=== PATIENT | male | born 1970 | race Caucasian/White ===

== ENCOUNTER 2018-09-25 10:35 | Observation (INO) | payer OTHER, SELFPAY ==
[2018-09-25] VITALS (12 sets, daily range): BP systolic 113–151; BP diastolic 64–88; PULSE 55–87; RESP 12–18; TEMP 36.4–37; O2SAT 95–100; BMI 22.7
--- NOTE | 2018-09-25 11:03 | ED.ABDPAIN ---
HPI - Abdominal Pain General Chief Complaint: Abdominal Pain Stated Complaint: Food is stuck in his esophacus Time Seen by Provider: 09/25/18 11:02 Source: patient Mode of arrival: ambulatory Limitations: no limitations History of Present Illness HPI narrative: 40-year-old male comes in with complaint of a sensation of food stuck in his esophagus. He states sort of upper epigastric lower chest region. Patient states he has had this before. He states it started 2 days ago while he was eating chicken. He states that he was not eating carefully and taking small bites and doing well. He states that he has tried to get it to pass on his own. He thinks maybe a little bit water got has gotten past but he typically spits it or vomits it back up. He has been vomiting back up any food he tries to eat. He states that he has been able to take his home medication but he thinks it does also pretty quickly he takes Lamictal. Patient states that he does not have any chest pain or shortness of breath. He has not had a bowel movement in 2 days but states that he has been passing gas. He has been urinating less but states he has not been drinking much water. He has had scope with GI 2 years ago with dilation of his esophagus. He states that was done at Saturday. He was told he would likely need another 1 in the future. Patient denies any other medical issues besides his seizure disorder. He denies any other surgeries. Patient states no other medication allergies. Patient lives on [facility]. Related Data Previous Rx's Medication Instructions Recorded lamotrigine [Lamictal] 400 mg PO BID #120 tab 03/06/16 albuterol sulfate [Ventolin HFA] 2 puff INH BID PRN #1 gm 07/09/16 Allergies Allergy/AdvReac Type Severity Reaction Status Date / Time No Known Drug Allergies Allergy Verified 09/25/18 10:42 Review of Systems Review of Systems ROS Unobtainable: All systems reviewed & are unremarkable except as noted in HPI and below Constitutional Denies chills, Denies fever(s), Denies lethargy and Denies weakness Cardiovascular Denies chest pain, Denies syncope, Denies edema, Denies palpitations, Denies dyspnea and Denies dyspnea on exertion Respiratory Denies change in phlegm color, Denies chest congestion, Denies cough, Denies dyspnea and Denies dyspnea on exertion Gastrointestinal Gastrointestinal: Reports abdominal pain (discomfort in chest), Denies change in bowel habits, Denies diarrhea, Reports nausea and Reports vomiting Genitourinary Denies dysuria, Denies urinary frequency, Denies urinary incontinence and Denies urinary urgency Musculoskeletal Denies back pain Neurologic Denies syncope and Denies weakness Endocrine Denies palpitations [facility] Medical History Esophageal dilatation (Chronic) Seizure disorder (Chronic) Surgical History S/P dilatation of esophageal stricture (Chronic) Family History (Updated 09/06/16 @ 00:00 by Conversion Provider) Grandfather Alzheimer's disease Grandmother Stroke Grandmother Dementia Social History Smoking Status: Never smoker Family History Grandfather Alzheimer's disease Grandmother Stroke Grandmother Dementia Social History household members: none Smoking Status: Never smoker Exam Initial Vital Signs Initial Vital Signs: Vital Signs Temperature 98.5 F 09/25/18 10:36 Pulse Rate 66 09/25/18 10:36 Respiratory Rate 18 09/25/18 10:36 Blood Pressure 151/87 H 09/25/18 10:36 Pulse Oximetry 100 09/25/18 10:36 GENERAL: Alert and oriented x three, well-nourished, well-appearing male in mild distress. HEENT: Head normocephalic, atraumatic, EOMI, pupils reactive, face symmetric, moist mucous membranes NECK: Supple, full range of motion CARDIOVASCULAR: Regular rate and rhythm without murmurs, rubs or gallops. RESPIRATORY: Breath sounds equal bilaterally, no wheezes rales or rhonchi. ABDOMEN: Soft, nontender to palpation. Normoactive bowel sounds all 4 quadrants. No guarding or rebound, rigidity, no mass : No CVA tenderness EXTREMITIES: Normal range of motion, no clubbing or edema. Neurovascularly intact NEUROLOGICAL: Cranial nerves II through XII grossly intact. Moving all extremities SKIN: Warm, dry, no petechiae, no rashes or lesions. Course Orders Ordered: ED Orders 09/25/18 11:25 Complete Blood Count AUTO DIFF Stat Comprehensive Metabolic Panel Stat Lamotrigine Lamictal Stat Lipase Stat Discontinued Medications Benzocaine/Butamben/Tetracaine HCl (Cetacaine Rough And Ready) 1 spray TOP NOW ONE Stop: 09/25/18 14:21 Last Admin: 09/25/18 14:10 Dose: 1 spray Fentanyl (Sublimaze) 250 mcg IV INTRA-OP ONE Stop: 09/25/18 14:21 Last Admin: 09/25/18 14:20 Dose: 150 mcg Glucagon (Glucagen) 1 mg IV NOW ONE Stop: 09/25/18 11:17 Last Admin: 09/25/18 11:30 Dose: 1 mg Sodium Chloride (Normal Saline 0.9%) 1,000 mls @ 1,000 mls/hr IV BOLUS ONE Stop: 09/25/18 12:15 Last Infusion: 09/25/18 12:39 Dose: 0 mls/hr Admin: 09/25/18 11:29 Dose: 1,000 mls/hr Lidocaine HCl (Lidocaine Hcl) 20 ml TOP NOW ONE Stop: 09/25/18 14:21 Last Admin: 09/25/18 14:10 Dose: 20 ml Midazolam HCl (Versed) 5 mg IV INTRA-OP ONE Stop: 09/25/18 14:21 Last Admin: 09/25/18 14:22 Dose: 4 mg Vital Signs - 8 hr 09/25/18 10:36 09/25/18 11:06 09/25/18 11:37 Temperature 98.5 F Pulse Rate 66 87 72 Respiratory Rate 18 16 18 Blood Pressure 151/87 H Blood Pressure [Left Arm] 121/64 127/79 Pulse Oximetry 100 99 100 09/25/18 12:00 09/25/18 12:30 09/25/18 13:34 Temperature 98.6 F Pulse Rate 61 62 57 L Respiratory Rate 18 18 16 Blood Pressure 137/83 Blood Pressure [Left Arm] 123/78 134/81 Pulse Oximetry 100 100 97 09/25/18 14:27 09/25/18 14:32 09/25/18 14:37 Temperature 98.2 F 97.9 F Pulse Rate 72 76 83 Respiratory Rate 16 12 18 Blood Pressure 113/72 122/77 129/72 Blood Pressure [Left Arm] Pulse Oximetry 95 97 97 09/25/18 14:40 09/25/18 14:54 09/25/18 15:15 Temperature 97.6 F Pulse Rate 68 55 L 63 Respiratory Rate 14 16 16 Blood Pressure 126/81 142/88 H 140/86 Blood Pressure [Left Arm] Pulse Oximetry 98 99 100 MDM - Abdominal Pain Lab Data Attestation: I reviewed the patient's lab results. Result diagrams: 09/25/18 11:25 09/25/18 11:25 Lab Results 09/25/18 09/25/18 Range/Units 11:25 11:25 WBC 5.7 (4.5-11.0) X10^3/uL RBC 4.84 (4.5-5.9) X10^6/uL Hgb 16.1 (13.5-17.5) g/dL Hct 47.5 (41-53) % MCV 98.1 (80-100) fL MCH 33.2 (26-34) PG MCHC 33.8 (30-36) % RDW 12.6 (11.6-14.8) % Plt Count 276 (150-400) X10^3/uL Neut % (Auto) 69.9 (50-75) % Lymph % (Auto) 20.8 L (25-40) % [place] % (Auto) 6.4 (3-14) % Eos % (Auto) 2.2 (2-4) % Baso % (Auto) 0.7 (0-2) % Neut # (Auto) 4000 (5677-4410) /uL Lymph # (Auto) 1200 (4141-0232) /uL [place] # (Auto) 400 (0-900) /uL Eos # (Auto) 100 (0-450) /uL Baso # (Auto) 0 (0-100) /uL Sodium 143 (137-145) mmol/L Potassium 4.6 (3.4-5.1) mmol/L Chloride 102 (98-107) mmol/L Carbon Dioxide 31 (22-32) mmol/L BUN 22 H (9-20) mg/dL Creatinine 1.20 (0.66-1.25) mg/dL Estimated GFR > 60.0 (>60) mL/min BUN/Creatinine Ratio 18.3 (6-22) Glucose 96 (70-100) mg/dL Calcium 9.9 (8.4-10.2) mg/dL Total Bilirubin 1.1 (0.2-1.3) mg/dL AST 33 (17-59) IU/L ALT 31 (21-72) IU/L Alkaline Phosphatase 119 (38-126) U/L Total Protein 8.3 H (6.3-8.2) g/dL Albumin 5.0 (3.5-5.0) g/dL Globulin 3.3 (1.7-4.1) g/dL Albumin/Globulin Ratio 1.5 (1.0-2.8) Lipase 163 (23-300) U/L MDM Narrative Medical decision making narrative: Tried glucagon followed by a clear carbonated beverage without any improvement. Spoke with Dr. Scott he will come and see the patient get a consent and plans for EGD today. We did discuss patient does have a seizure disorder, lamotrigine level is pending. He did request EKG for the patient. Patient thought he may have cleared food bolus he states it feels a little bit better. He tried chugging some water, spewed everywhere. Dr. Gonzales was in department and took patient to OR for EGD> Discharge Plan Departure Patient Disposition: Admitted as Observation Clinical Impression: Food impaction of esophagus Discharge Date/Time: 09/25/18 13:05 Interventions: ED Discharge Assessment Last Done: 09/25/18 13:04 Admit Date/Time: 09/25/18 12:38 Admit Provider: Jordin Gonzales
[2018-09-25] MEDS: SODIUM CHLORIDE 0.9% 1,000 ML 1000 ML IV (11:29)
[2018-09-25] MEDS: GLUCAGON,HUMAN RECOMBINANT 1 MG/ML VIAL IV (11:30)
[2018-09-25 11:40] LABS: Add Manual Diff / Slide Review NO; Basophils Absolute Auto 0 /uL (0-100); Basophils Percent Auto 0.7 % (0-2); Eosinophils Absolute Auto 100 /uL (0-450); Eosinophils Percent Auto 2.2 % (2-4); Hematocrit 47.5 % (41-53); Hemoglobin 16.1 g/dL (13.5-17.5); Lymphocytes Absolute Auto 1200 /uL (1100-4500); Lymphocytes Percent Auto 20.8 % (25-40); Mean Corpuscular HGB Conc 33.8 % (30-36); Mean Corpuscular Hemoglobin 33.2 PG (26-34); Mean Corpuscular Volume 98.1 fL (80-100); Monocytes Absolute Auto 400 /uL (0-900); Monocytes Percent Auto 6.4 % (3-14); Neutrophils Absolute Auto 4000 /uL (1500-7000); Neutrophils Percent Auto 69.9 % (50-75); Platelet Count 276 X10^3/uL (150-400); Red Blood Cell Count 4.84 X10^6/uL (4.5-5.9); Red Cell Distribution Width 12.6 % (11.6-14.8); White Blood Cell Count 5.7 X10^3/uL (4.5-11.0)
[2018-09-25 11:52] LABS: Alanine Aminotransferase 31 IU/L (21-72); Albumin Globulin Ratio 1.5 (1.0-2.8); Alkaline Phosphatase 119 U/L (38-126); Aspartate Aminotransferase 33 IU/L (17-59); BUN Creatinine Ratio 18.3 (6-22); Bilirubin Total 1.1 mg/dL (0.2-1.3); Blood Urea Nitrogen 22 mg/dL (9-20); Calcium 9.9 mg/dL (8.4-10.2); Carbon Dioxide 31 mmol/L (22-32); Chloride 102 mmol/L (98-107); Estimated Glomerular Filt Rate > 60.0 mL/min (>60); Globulin 3.3 g/dL (1.7-4.1); Glucose 96 mg/dL (70-100); HEMOLYSIS < 15 (0-50); Lipase 163 U/L (23-300); Potassium 4.6 mmol/L (3.4-5.1); Sodium 143 mmol/L (137-145); Total Protein 8.3 g/dL (6.3-8.2)
--- NOTE | 2018-09-25 13:08 | PM.HP.1 ---
History of Present Illness Date Patient Seen: 09/25/18 Time Patient Seen: 13:08 Chief complaint: Food is stuck in his esophacus Narrative: 48-year-old white male with a 2 year history of esophageal stricture and removal of a food bolus 2 years ago. He thinks he had his esophagus dilated 2 years ago also. Is a 2 day history of food being lodged in the esophagus. He is unable to swallow water or saliva. Patient History Medical History Esophageal dilatation (Chronic) Seizure disorder (Chronic) Surgical History S/P dilatation of esophageal stricture (Chronic) Family History (Updated 09/06/16 @ 00:00 by Conversion Provider) Grandfather Alzheimer's disease Grandmother Stroke Grandmother Dementia Social History Smoking Status: Never smoker Family & Social History Family History Grandfather Alzheimer's disease Grandmother Stroke Grandmother Dementia Safety & Behavioral: Feels Safe in Current Yes Environment Been Physically Hurt or No Threatened By a Person Tobacco & Substance use: Smoking Status Never smoker alcohol intake frequency 3 or more drinks per day Substance Use Type does not use Meds Home Medications Medication Instructions Recorded Confirmed Type lamotrigine [Lamictal] 400 mg PO BID #120 tab 03/06/16 09/25/18 Rx albuterol sulfate [Ventolin HFA] 2 puff INH BID PRN #1 gm 07/09/16 09/25/18 Rx Allergies Allergy/AdvReac Type Severity Reaction Status Date / Time No Known Drug Allergies Allergy Verified 09/25/18 10:42 Exam Vital Signs (past 8 hours): - 09/25/18 10:36 09/25/18 11:06 09/25/18 11:37 Temperature 98.5 F Pulse Rate 66 87 72 Respiratory Rate 18 16 18 Blood Pressure 151/87 H Blood Pressure [Left Arm] 121/64 127/79 Pulse Oximetry 100 99 100 Oxygen Delivery Method Room Air Narrative Exam Narrative: Patient is alert oriented unable to swallow saliva. Lungs are clear with no rales or wheezes Heart regular rhythm no murmur no gallop Abdomen soft no organomegaly no tenderness Cervical exam shows no adenopathy or masses Objective Labs Result Diagrams: 09/25/18 11:25 09/25/18 11:25 Labs: Laboratory Results - last 24 hr 09/25/18 09/25/18 11:25 11:25 WBC 5.7 RBC 4.84 Hgb 16.1 Hct 47.5 MCV 98.1 MCH 33.2 MCHC 33.8 RDW 12.6 Plt Count 276 Neut % (Auto) 69.9 Lymph % (Auto) 20.8 L [place] % (Auto) 6.4 Eos % (Auto) 2.2 Baso % (Auto) 0.7 Neut # (Auto) 4000 Lymph # (Auto) 1200 [place] # (Auto) 400 Eos # (Auto) 100 Baso # (Auto) 0 Sodium 143 Potassium 4.6 Chloride 102 Carbon Dioxide 31 BUN 22 H Creatinine 1.20 Estimated GFR > 60.0 BUN/Creatinine Ratio 18.3 Glucose 96 Calcium 9.9 Total Bilirubin 1.1 AST 33 ALT 31 Alkaline Phosphatase 119 Total Protein 8.3 H Albumin 5.0 Globulin 3.3 Albumin/Globulin Ratio 1.5 Lipase 163 Assessment & Plan Assessment & Plan narrative: Patient's for current food bolus lodged in the esophagus likely secondary to a stricture. He has had this before. He understands the nature of the problem and that I will do an esophagoscopy extraction of the food bolus. This boluses been present for about 2 days. Therefore I explained to the patient may not be safe to dilate the esophagus as it is likely to be inflamed. This will be determined at endoscopy. Patient understands and agrees. Has no further questions
[2018-09-25] MEDS: LIDOCAINE 4% SOLN 50 ML 20 ML TOP (14:10)
[2018-09-25] MEDS: TETRACAINE/BENZOCAINE/BUTAMBEN (CETACAINE) BOTTLE 1 SPRAY TOP (14:10)
--- NOTE | 2018-09-25 14:19 | PM.OP.ENDO ---
Operative Date/Time/Diagnoses Date of procedure: 09/25/18 Time of procedure: 14:19 Pre-op diagnosis: Esophageal food bolus with possible stricture Post-op diagnosis: same Procedure & Clinicians Study performed: Esophagogastroduodenoscopy forward advancement of esophageal food bolus into the stomach Same procedure as scheduled: Yes Indications: Food bolus lodged in the distal esophagus Surgeon: Jordin Gonzales Procedure Notes SCOAP/Timeout: Was done Procedure in detail: The patient was properly identified during surgical pause given topical pharyngeal Cetacaine spray. Total of 4 mg of Versed and 150 micro g of fentanyl throughout the procedure. The flexible fiberoptic gastroscope was inserted transorally from the hypopharynx into the midesophagus. A food bolus of chicken fibrous tissue was lodged in the distal esophagus. With irrigation and gentle forward pressure I was able to advance the food bolus into the stomach. Some bleeding occurred from the mucosa. This was minimal. I advanced the scope into the stomach and upper duodenum. Retroflexed thing the scope on the gastric side revealed no Gracie-Garcia tear or any other gastroesophageal injury. Patient has a moderate stricture in the distal esophagus which appears benign. The adult gastroscope easily traversed this stricture. Because the area was already somewhat hemorrhagic I elected not to dilate the stricture. I did not want to create further bleeding. The procedure was well tolerated. Scope withdrawal time: 8 Sedation minutes: 8 Findings: stricture Specimen(s): none sent Impression: Mild benign-appearing esophageal stricture. Food bolus was lodged there and advanced into the stomach. Plan for aftercare: To your food well. Take an [id number] variety of a proton pump inhibitor for 6 weeks. This could be [id number] variety of Prilosec or Nexium. Follow up: as needed Disposition: PACU
[2018-09-25] MEDS: fentaNYL 250 MCG/5 ML INJ IV (14:20)
[2018-09-25] MEDS: MIDAZOLAM 5 MG/5 ML VIAL IV (14:22)
--- NOTE | 2018-09-25 14:25 | P.OP.ENDO_ITS ---
Operative Date/Time/Diagnoses Date of procedure: 09/25/18 Time of procedure: 14:19 Pre-op diagnosis: Esophageal food bolus with possible stricture Post-op diagnosis: same Procedure & Clinicians Study performed: Esophagogastroduodenoscopy forward advancement of esophageal food bolus into the stomach Same procedure as scheduled: Yes Indications: Food bolus lodged in the distal esophagus Surgeon: Jordin Gonzales Procedure Notes SCOAP/Timeout: Was done Procedure in detail: The patient was properly identified during surgical pause given topical pharyngeal Cetacaine spray. Total of 4 mg of Versed and 150 micro g of fentanyl throughout the procedure. The flexible fiberoptic gastroscope was inserted transorally from the hypopharynx into the midesophagus. A food bolus of chicken fibrous tissue was lodged in the distal esophagus. With irrigation and gentle forward pressure I was able to advance the food bolus into the stomach. Some bleeding occurred from the mucosa. This was minimal. I advanced the scope into the stomach and upper duodenum. Retroflexed thing the scope on the gastric side revealed no Gracie-Garcia tear or any other gastroesophageal injury. Patient has a moderate stricture in the distal esophagus which appears benign. The adult gastroscope easily traversed this stricture. Because the area was already somewhat hemorrhagic I elected not to dilate the stricture. I did not want to create further bleeding. The procedure was well tolerated. Scope withdrawal time: 8 Sedation minutes: 8 Findings: stricture Specimen(s): none sent Impression: Mild benign-appearing esophageal stricture. Food bolus was lodged there and advanced into the stomach. Plan for aftercare: To your food well. Take an [id number]-[id number] variety of a proton pump inhibitor for 6 weeks. This could be imbo-jwx-hzoslfx variety of Prilosec or Nexium. Follow up: as needed Disposition: PACU
--- NOTE | 2018-09-25 14:50 | SUR.PHASEI ---
stable pacu stay, dr dixon spoke with pt. to opd.
--- NOTE | 2018-09-25 15:28 | SUR.PHASEII ---
pt fully recovered awaiting ride which will be 30 minutes wait. Pt dressed and sitting on stretcher.
--- NOTE | 2018-09-25 16:35 | SUR.PHASEII ---
Pt got in appsplit and was d/nuris to the [facility].
[2018-09-28 09:12] LABS: Lamotrigine Lamictal 15.9 mcg/mL (4.0-18.0)
== END 2018-09-25 16:30 | disposition home or self-care (01) ==
LOC: ED 12:35 → AC 12:40
PROVIDERS: Admitting Provider Surgery; Emergency Provider Emergency Medicine; Family Provider Family Medicine; PCP Family Medicine; Visit Provider Surgery
PROC: 0DJ08ZZ Inspection of Upper Intestinal Tract, Via Natural or Artificial Opening Endoscopic (ICD-10-PCS; CPT 43235; principal; 2018-09-25 14:00)
DX: T18.128A Food in esophagus causing other injury, initial encounter (principal); R10.13 Epigastric pain; G40.909 Epilepsy, unspecified, not intractable, without status epilepticus
CPT/HCPCS: 43247; 36591; 80053; 80175; 83690; 85025; 96361; 96374; 99283; 99284; G0378; J1610; J2250; J3010

== ENCOUNTER → 2020-10-19 10:36 | Outpatient (CLI) | payer OTHER, SELFPAY ==
[2020-10-19 20:43] LABS: COVID19 - ORCAS (NP or Nasal) Negative (Negative)
== END ==
PROVIDERS: Family Provider Family Medicine; PCP Family Medicine; Visit Provider Physician Assistant Medical
DX: Z20.822 Contact with and (suspected) exposure to COVID-19 (principal)
CPT/HCPCS: U0003

== ENCOUNTER → 2020-12-01 12:35 | Outpatient (CLI) | payer OTHER, SELFPAY | PROVIDERS: Family Provider Family Medicine; PCP Family Medicine; Visit Provider Family Medicine | DX: G40.909 Epilepsy, unspecified, not intractable, without status epilepticus (principal) | CPT/HCPCS: 80175 ==

== ENCOUNTER → 2021-03-14 08:12 | Outpatient (CLI) | payer OTHER, SELFPAY ==
[2021-03-14 20:15] LABS: COVID19 - ORCAS (NP or Nasal) Negative (Negative)
== END ==
PROVIDERS: Family Provider Family Medicine; PCP Family Medicine; Visit Provider Physician Assistant
DX: Z20.822 Contact with and (suspected) exposure to COVID-19 (principal)
CPT/HCPCS: U0003

== ENCOUNTER 2021-03-16 11:46 | Day surgery (SDC) | payer OTHER, SELFPAY ==
[2021-03-16] VITALS (8 sets, daily range): BP systolic 113–140; BP diastolic 80–92; PULSE 66–75; RESP 14–70; TEMP 36.4–36.7; O2SAT 98–100; BMI 23.6
--- NOTE | 2021-03-16 | PATH_ITS ---
[facility] Accession Number: [id number] . 01 Material submitted: . colon - TRANSVERSE COLON . 02 Diagnosis: Transverse Colon: Tubular adenoma. MRV 03/20/2021 1517 Local . 02 Electronically signed: . Rosemary Ayala MD, Pathologist NPI- [id number] . 01 Gross description: . TRANSVERSE COLON: Received in formalin is 1 fragment(s) of ball, soft tissue measuring 0.6 x 0.2 x 0.2 cm submitted entirely in 1 cassette(s) /NOAH 03/17/2021 1948 Local . 02 Pathologist provided ICD-10: K63.5 . 02 CPT . 559613 Performed at: [address] [facility] Cytology [address] [place] [id number] MD Juan Carlos Barros MD Phone: [phone] Performed at: 02 [facility] [address] [place], [place] [id number] MD Tiffani Stiles MD Phone: [phone]
[2021-03-16] MEDS: LACTATED RINGERS 1,000 ML 200 ML IV (12:12)
--- NOTE | 2021-03-16 13:14 | PM.HP.1 ---
History of Present Illness History of Present Illness Date Patient Seen: 03/16/21 Time Patient Seen: 13:15 Chief complaint: SCREENING COLONOSCOPY Narrative: The patient presents for colorectal sreening. They have never had any previous examination for such. No personal or family history of colon cancer. On further history denies any recent gastrointestinal symptoms. No nausea, vomiting, abdominal pain, loss of appetite, unexplained weight loss, change in bowel habits, diarrhea, constipation, melena, hematochezia, or bright red blood per rectum. Patient History Medical History Asthma Encounter for therapeutic drug monitoring Esophageal dilatation Generalized abdominal pain History of esophageal stricture Nasal congestion Screening for diabetes mellitus Screening for lipid disorders Seizure disorder (~1995) Surgical History S/P dilatation of esophageal stricture Family & Social History Family History Grandfather Alzheimer's disease Grandmother Stroke Grandmother Dementia Social History: household members none Tobacco & Substance use: Smoking Status Never smoker alcohol intake current alcohol intake frequency 3 or more drinks per day Substance Use Type does not use Meds Home Medications and Allergies Home Medications Medication Instructions Recorded Confirmed Type albuterol sulfate 90 mcg/actuation 2 puff INHALATION BID PRN #1 gm 11/11/20 03/16/21 Rx aerosol inhaler (Ventolin HFA) triamcinolone acetonide 0.5 % See Rx Instructions .ROUTE 12/05/20 03/16/21 Rx topical ointment .COMPLEX #15 gram lamotrigine 200 mg tablet 400 mg PO BID #360 tab NS 02/20/21 03/16/21 Rx Allergies Allergy/AdvReac Type Severity Reaction Status Date / Time No Known Drug Allergies Allergy Verified 03/16/21 12:08 Exam Vital Signs (past 8 hours): - 03/16/21 12:13 Temperature 98.1 F Pulse Rate 75 Respiratory Rate 18 Blood Pressure 130/84 Pulse Oximetry 99 Oxygen Delivery Method Room Air Narrative Exam Narrative: GENERAL: Adult male in no apparent distress HEENT: No scleral icterus CV: Regular rate, no peripheral edema LUNGS: No increased work of breathing. Patient speaks in full sentences without oxygen support. ABDOMEN: Soft, non-tender, non-distended NEURO: Nonfocal, normal strength throughout SKIN: Warm and dry Assessment & Plan Assessment and plan (1) Screening for colon cancer: Status: Acute Assessment & Plan narrative: The patient requires colorectal screening and colonoscopy is recommended. Technical details were discussed. Risks, benefits, alternatives explained. Risks including but not limited to myocardial infarction, aspiration, bleeding, pain, missed lesion, incomplete examination, need for further radiographic studies, colonic perforation, and need for major abdominal surgery were discussed. All questions were answered to their satisfaction, and they are in agreement with this plan. Time Spent With Patient Critical Care time: I spent a total of [] minutes of critical care time on this patient's care today; this time is exclusive of procedural time.
[2021-03-16] MEDS: fentaNYL 250 MCG/5 ML INJ IV (13:23)
[2021-03-16] MEDS: MIDAZOLAM 5 MG/5 ML VIAL IV (13:23)
--- NOTE | 2021-03-16 13:42 | P.OP.COLON_ITS ---
Operative Date/Time/Diagnoses Date of procedure: 03/16/21 Time of procedure: 13:42 Pre-op diagnosis: Screening Post-op diagnosis: same Procedure & Clinicians Study performed: Colonoscopy Same procedure as scheduled: Yes Indications: Screening Surgeon: Alber Gandara Procedure Notes Procedure in detail: Medications: Conscious sedation using 8 mg IV midazolam and 100 mcg IV of fentanyl The history and physical was performed/updated and the patient is ASA class is 2. The procedure was discussed in detail with the patient. Potential risks complications including infection, bleeding, missed diagnosis, perforation, need for surgery, and were explained. Their questions were answered and informed consent was obtained. Patient was brought to the procedure room and placed standard monitoring equipment. The patient's vital signs were monitored continuously throughout the entire procedure. Prior to starting time-out was performed. The patient was placed in the left lateral recumbent position. Procedural sedation was adminis tered. Examination began with a thorough inspection of the perianal area there was no evidence of fissures, fistulae, external hemorrhoids or cutaneous malignancy. The colonoscopy scope was then placed into the anal canal and was advanced to the cecum, which was identified by the ileocecal valve, the appendiceal orifice and the confluence of the taenia. The scope was then slowly withdrawn examining colon thoroughly in all directions, irrigating it of any residual stool. FINDINGS 1. Transverse colon-5 mm polyp removed with biopsy forceps 2. Grade 2 internal hemorrhoids The patient tolerated the procedure well. They will be discharged once criteria are met. The prep was of fair quality. The withdrawl time was 6 minutes. The sedation time was 20 minutes. Specimen(s): other (Transverse colon) Complications: none Impression: Colonic polyp Post-procedure Recommendations: Colonoscopy in 5 years Disposition: same day surgery
--- NOTE | 2021-03-16 15:03 | SUR.PHASEII ---
03/16/21-1409 Dr Gandara aware pt being discharged by taxi to [facility] as walk on and then being picked up on [facility] when Docked. Pt declined to give out phone number/name of ride preop. Per Dr Gandara-okay to proceed with transfer to home. Patient aware no driving for 24 hrs post procedure preop and again stressed postop. patient states understanding.
--- NOTE | 2021-03-16 15:06 | SUR.PHASEII ---
03/16/21- 1430-Pt wide awake and alert. pt dressed & ready for discharge. iv out. met criteria for discharge. He has postop paperwork/home instructions/md phone number, and all belongings. [facility] Phelan called for pickup. escorted by wheel chair to await taxi at ER admission area. Sat w/ pt while awaiting taxi. Refused further po fluids,snack for the ride home. 1450-Boyd phelan arrived. escorted ambulatory to taxi. patient has all belongings/paper work.
== END 2021-03-16 14:50 | disposition home or self-care (01) ==
LOC: ENDO 11:49
PROVIDERS: Family Provider Family Medicine; PCP Family Medicine; Referring Provider Surgery; Visit Provider Surgery
PROC: 0DJD8ZZ Inspection of Lower Intestinal Tract, Via Natural or Artificial Opening Endoscopic (ICD-10-PCS; CPT 45378; principal; 2021-03-16 13:00)
DX: Z12.11 Encounter for screening for malignant neoplasm of colon (principal); J45.909 Unspecified asthma, uncomplicated; G40.909 Epilepsy, unspecified, not intractable, without status epilepticus; K64.1 Second degree hemorrhoids; D12.3 Benign neoplasm of transverse colon
CPT/HCPCS: 45380; 99152; J2250; J3010

== ENCOUNTER → 2021-07-19 08:06 | Outpatient (CLI) | payer OTHER, SELFPAY ==
[2021-07-19 18:35] LABS: Add Manual Diff / Slide Review NO; Basophils Absolute Auto 0 /uL (0-100); Basophils Percent Auto 0.8 % (0-2); Eosinophils Absolute Auto 600 /uL (0-450); Eosinophils Percent Auto 11.3 % (2-4); Hematocrit 42.8 % (41-53); Hemoglobin 15.2 g/dL (13.5-17.5); Lymphocytes Absolute Auto 1600 /uL (1100-4500); Lymphocytes Percent Auto 30.3 % (25-40); Mean Corpuscular HGB Conc 35.4 % (30-36); Mean Corpuscular Hemoglobin 34.3 PG (26-34); Mean Corpuscular Volume 96.7 fL (80-100); Monocytes Absolute Auto 400 /uL (0-900); Neutrophils Absolute Auto 2600 /uL (1500-7000); Neutrophils Percent Auto 49.6 % (50-75); Platelet Count 227 X10^3/uL (150-400); Red Blood Cell Count 4.43 X10^6/uL (4.5-5.9); Red Cell Distribution Width 12.5 % (11.6-14.8); White Blood Cell Count 5.2 X10^3/uL (4.5-11.0)
[2021-07-19 18:51] LABS: Alanine Aminotransferase 32 IU/L (<50); Albumin 4.5 g/dL (3.5-5.0); Albumin Globulin Ratio 1.9 (1.0-2.8); Alkaline Phosphatase 107 U/L (38-126); Aspartate Aminotransferase 36 IU/L (17-59); BUN Creatinine Ratio 13.9 (6-22); Bilirubin Total 0.5 mg/dL (0.2-1.3); Blood Urea Nitrogen 16 mg/dL (9-20); Calcium 9.3 mg/dL (8.4-10.2); Carbon Dioxide 32 mmol/L (22-32); Chloride 102 mmol/L (98-107); Cholesterol 247 mg/dL (140-199); Estimated Glomerular Filt Rate > 60 mL/min (>60); Globulin 2.4 g/dL (1.7-4.1); Glucose 100 mg/dL (70-100); HEMOLYSIS < 15 (0-50); Potassium 4.5 mmol/L (3.4-5.1); Sodium 139 mmol/L (137-145); Total Protein 6.9 g/dL (6.3-8.2); Triglycerides 64 mg/dL (35-150)
[2021-07-19 19:15] LABS: HDL Cholesterol 117 mg/dL (40-60); LDL Cholesterol Calculated 117 mg/dL (<100)
== END ==
PROVIDERS: Family Provider Family Medicine; PCP Physician Assistant; Visit Provider Physician Assistant
DX: G40.909 Epilepsy, unspecified, not intractable, without status epilepticus (principal); J45.40 Moderate persistent asthma, uncomplicated; J45.909 Unspecified asthma, uncomplicated; Z12.5 Encounter for screening for malignant neoplasm of prostate; Z13.220 Encounter for screening for lipoid disorders
CPT/HCPCS: 80053; 80061; 84153; 85025

== ENCOUNTER → 2023-02-06 11:42 | Outpatient (CLI) | payer OTHER, SELFPAY ==
[2023-02-06 20:17] LABS: Add Manual Diff / Slide Review NO; Basophils Absolute Auto 0 /uL (0-100); Basophils Percent Auto 0.6 % (0-2); Eosinophils Absolute Auto 400 /uL (0-450); Eosinophils Percent Auto 7.1 % (2-4); Hematocrit 42.7 % (41-53); Hemoglobin 14.6 g/dL (13.5-17.5); Lymphocytes Absolute Auto 1200 /uL (1100-4500); Lymphocytes Percent Auto 22.6 % (25-40); Mean Corpuscular HGB Conc 34.2 % (30-36); Mean Corpuscular Hemoglobin 33.7 PG (26-34); Mean Corpuscular Volume 98.4 fL (80-100); Monocytes Absolute Auto 500 /uL (0-900); Monocytes Percent Auto 9.8 % (3-14); Neutrophils Absolute Auto 3300 /uL (1500-7000); Neutrophils Percent Auto 59.9 % (50-75); Platelet Count 220 X10^3/uL (150-400); Red Blood Cell Count 4.33 X10^6/uL (4.5-5.9); Red Cell Distribution Width 12.6 % (11.6-14.8); White Blood Cell Count 5.5 X10^3/uL (4.5-11.0)
[2023-02-06 20:26] LABS: Alanine Aminotransferase 41 IU/L (<50); Albumin 4.4 g/dL (3.5-5.0); Albumin Globulin Ratio 1.6 (1.0-2.8); Alkaline Phosphatase 118 U/L (38-126); Aspartate Aminotransferase 44 IU/L (17-59); BUN Creatinine Ratio 15.9 (6-22); Bilirubin Total 0.6 mg/dL (0.2-1.3); Blood Urea Nitrogen 17 mg/dL (9-20); C-Reactive Protein Quant 1.3 mg/dL (<1.0); Calcium 9.5 mg/dL (8.4-10.2); Carbon Dioxide 29 mmol/L (22-32); Chloride 101 mmol/L (98-107); Cholesterol 259 mg/dL (140-199); Estimated Glomerular Filt Rate > 60 mL/min (>60); Gamma Glutamyl Transpeptidase 125 U/L (15-73); Globulin 2.7 g/dL (1.7-4.1); Glucose 98 mg/dL (70-100); HEMOLYSIS < 15 (0-50); Potassium 4.4 mmol/L (3.4-5.1); Sodium 136 mmol/L (137-145); Total Protein 7.1 g/dL (6.3-8.2); Triglycerides 102 mg/dL (35-150)
[2023-02-06 20:31] LABS: Rheumatoid Factor 10.7 IU/mL (<12.0)
[2023-02-06 20:35] LABS: HDL Cholesterol 116 mg/dL (40-60); LDL Cholesterol Calculated 123 mg/dL (<100)
[2023-02-06 20:45] LABS: Erythrocyte Sedimentation Rate 8 MM/HR (0-15)
[2023-02-06 20:53] LABS: TSH w/ Reflex to FT4 0.88 uIU/mL (0.47-4.68)
== END ==
PROVIDERS: Family Provider Family Medicine; PCP Physician Assistant Medical; Visit Provider Physician Assistant Medical
DX: Z13.6 Encounter for screening for cardiovascular disorders (principal); D53.9 Nutritional anemia, unspecified; G47.00 Insomnia, unspecified; R53.83 Other fatigue
CPT/HCPCS: 80053; 80061; 82977; 84443; 85025; 85651; 86140; 86430

== ENCOUNTER → 2024-02-04 10:59 | Outpatient (CLI) | payer OTHER, SELFPAY ==
[2024-02-04 19:24] LABS: Hematocrit 43.7 % (41-53); Hemoglobin 15.1 g/dL (13.5-17.5); Mean Corpuscular HGB Conc 34.5 % (30-36); Mean Corpuscular Hemoglobin 34.3 PG (26-34); Mean Corpuscular Volume 99.3 fL (80-100); Platelet Count 233 X10^3/uL (150-400); White Blood Cell Count 5.3 X10^3/uL (4.5-11.0)
[2024-02-04 19:28] LABS: Alanine Aminotransferase 39 IU/L (<50); Albumin 4.5 g/dL (3.5-5.0); Albumin Globulin Ratio 1.8 (1.0-2.8); Alkaline Phosphatase 133 U/L (38-126); Aspartate Aminotransferase 46 IU/L (17-59); BUN Creatinine Ratio 10.8 (6-22); Bilirubin Total 0.9 mg/dL (0.2-1.3); Blood Urea Nitrogen 12 mg/dL (9-20); Calcium 9.4 mg/dL (8.4-10.2); Carbon Dioxide 28 mmol/L (22-32); Chloride 103 mmol/L (98-107); Estimated Glomerular Filt Rate > 60 mL/min (>60); Globulin 2.5 g/dL (1.7-4.1); Glucose 79 mg/dL (70-100); HEMOLYSIS < 15 (0-50); Sodium 137 mmol/L (137-145)
[2024-02-04 19:39] LABS: Hemoglobin A1C% w Est Avg Glu 5.2 % (4.0-6.0)
[2024-02-04 19:58] LABS: Prostate Specific Antigen Scrn 0.543 ng/mL (0.1-4.0)
== END ==
PROVIDERS: Family Provider Family Medicine; PCP Physician Assistant Medical; Referring Provider Physician Assistant Medical; Visit Provider Physician Assistant Medical
DX: Z12.5 Encounter for screening for malignant neoplasm of prostate (principal); Z13.6 Encounter for screening for cardiovascular disorders; Z12.11 Encounter for screening for malignant neoplasm of colon; G40.909 Epilepsy, unspecified, not intractable, without status epilepticus; R53.83 Other fatigue; D53.9 Nutritional anemia, unspecified
CPT/HCPCS: 80053; 83036; 85027; G0103

== ENCOUNTER → 2024-02-24 09:58 | Outpatient (CLI) | payer OTHER, SELFPAY ==
[2024-02-24 19:46] LABS: Cholesterol 294 mg/dL (140-199); Triglycerides 106 mg/dL (35-150)
[2024-02-24 20:03] LABS: HDL Cholesterol 150 mg/dL (40-60); LDL Cholesterol Calculated 123 mg/dL (<100)
== END ==
PROVIDERS: Family Provider Family Medicine; PCP Physician Assistant Medical; Visit Provider Physician Assistant Medical
DX: R07.89 Other chest pain (principal)
CPT/HCPCS: 80061

== ENCOUNTER → 2025-01-08 11:00 | Outpatient (CLI) | payer OTHER, SELFPAY ==
[2025-01-08 19:21] LABS: Add Manual Diff / Slide Review NO; Hematocrit 44.9 % (41-53); Hemoglobin 15.4 g/dL (13.5-17.5); Lymphocytes Absolute Auto 1400 /uL (1100-4500); Mean Corpuscular HGB Conc 34.3 % (30-36); Mean Corpuscular Hemoglobin 33.5 PG (26-34); Mean Corpuscular Volume 97.5 fL (80-100); Platelet Count 287 X10^3/uL (150-400)
[2025-01-08 19:33] LABS: Alanine Aminotransferase 30 IU/L (<50); Albumin 4.7 g/dL (3.5-5.0); Albumin Globulin Ratio 1.8 (1.0-2.8); Alkaline Phosphatase 118 U/L (38-126); Blood Urea Nitrogen 12 mg/dL (9-20); Calcium 9.3 mg/dL (8.4-10.2); Carbon Dioxide 29 mmol/L (22-32); Chloride 102 mmol/L (98-107); Cholesterol 266 mg/dL (140-199); Estimated Glomerular Filt Rate > 60 mL/min (>60); Globulin 2.6 g/dL (1.7-4.1); Glucose 102 mg/dL (70-99); Potassium 4.2 mmol/L (3.4-5.1); Sodium 138 mmol/L (137-145); Total Protein 7.3 g/dL (6.3-8.2); Triglycerides 105 mg/dL (35-150)
[2025-01-08 19:38] LABS: Hemoglobin A1C% w Est Avg Glu 5.2 % (4.0-6.0)
[2025-01-08 19:40] LABS: HEMOLYSIS 17 (0-50)
[2025-01-08 19:42] LABS: HDL Cholesterol 129 mg/dL (40-60)
[2025-01-08 19:59] LABS: TSH w/ Reflex to FT4 1.05 uIU/mL (0.47-4.68)
== END ==
PROVIDERS: PCP Physician Assistant Medical; Visit Provider Physician Assistant Medical
DX: Z00.01 Encounter for general adult medical examination with abnormal findings (principal); G40.909 Epilepsy, unspecified, not intractable, without status epilepticus; Z13.6 Encounter for screening for cardiovascular disorders; R53.83 Other fatigue; J45.20 Mild intermittent asthma, uncomplicated; D53.9 Nutritional anemia, unspecified; G47.00 Insomnia, unspecified
CPT/HCPCS: 80053; 80061; 83036; 84443; 85025